=== PATIENT | female | born 1990 | race Caucasian/White ===

== ENCOUNTER 2025-09-20 08:42 | Outpatient (AMB) | payer MEDICAID, SELFPAY ==
[2025-09-20 09:12] VITALS: BP 119/77; RESP 18; TEMP 36.8; O2SAT 98
--- NOTE | 2025-09-20 09:12 | AMB.OBINITIA ---
Vital Signs 09/20/25 09:12 Weight 91.626 kg Weight Measurement Method Standing Scale BP 119/77 Blood Pressure Source Automatic Cuff Blood Pressure Location Left Upper Arm Position Sitting Respiration 18 Pulse Source Monitor Temp 98.2 F Temp Source Oral Pulse Oximetry (%) 98 Oxygen Delivery Method Room Air Allergies/Home Meds Allergies & Medications Allergies Penicillins Allergy (Unknown, Verified 09/20/25 10:13) Intake Visit Data Collection New Patient or Established: Established Patient (seen at [facility] within 3 years) Reason for Visit:: OB TRANSFER Seen by Clinical Staff ONLY (RN/MA): No Environmental Protection Officer Required: Yes Environmental Protection Officer's name/title: CARLEEN FIELD MA Do You Feel Safe at Home: Yes Authorities Contacted: N/A PCP or OBGYN visit in last 3 months: Yes Hx Now: Yes Are you currently on any form of Control: No Pain Present Currently: No Pain Scale Used: Davies-Gray/Numerical Pain scale:: 0 Smoking Status Smoking Status: Never smoker Immunizations Flu Vaccine in the Last 12 Months: No Flu Vaccine Exclusion Criteria: No Exclusion Criteria Questionnaires Covid-19 Vaccine Questionnaire Has patient been vacinated for Covid-19 Have you been vacinated for Covid-19: Yes PHQ-9 PHQ-2 Over the last 2 weeks, how often have you been bothered by any of the following problems? 1. Little interest or pleasure in doing things: not at all 2. Feeling down, depressed, or hopeless: not at all Total score: 0 PHQ-9 3. Trouble falling or staying asleep, or sleeping too much: Not at all 4. Feeling tired or having little energy: Not at all 5. Poor appetite or overeating: Not at all 6. Feeling bad about yourself - or that you are a failure or have let yourself or your family down: Not at all 7. Trouble concentrating on things, such as reading the newspaper or watching television: Not at all 8. Moving or speaking so slowly that other people could have noticed? - Or the opposite - being so fidgety or restless that you have been moving around a lot more than usual: not at all 9. Thoughts that you would be better off or of hurting yourself in some way: Not at all Total score: 0 If you checked off any problems, how difficult have these problems made it for you to do your work, take care of things at home, or get along with other people?: not difficult at all Source: Developed by Drs. Oj Nails, Tata Bailon, Mitchell Salas and colleagues, with an educational dontae from [employer]. Depression screen completed yes Social History Living Situation History Marital Status: Single Lives With: Family Housing: House Tobacco History Smoking Status: Never smoker Second Hand Smoke Exposure: No Alcohol History Alcohol Intake: Never Domestic Abuse History Do You Feel Safe at Home: Yes History of Present Illness HPI Narrative Establish care for Non-stress test and biophysical profile Yessy Gardiner is a patient at 35 weeks and one day gestation who presents for routine non-stress test and biophysical profile monitoring. She was transferred from Dr. 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 The patient is scheduled for a repeat section on Oct 30 2025, in [place], which would be her fourth delivery. She has a history of grand multiparity and advanced maternal age. Her current medications include acetaminophen, folic acid, and vitamins. She has a medical history significant for [id number] urinary tract infections, backache, and headache. The patient is currently being monitored twice weekly until delivery due to the cardiac abnormalities that have been consistently identified on multiple echocardiograms. Medical History: - History of aroi-qbmtge-[id number] urinary tract infections - Backache - Headache - Advanced maternal age Surgical History: - Three prior sections Obstetric History: - Grand multiparity with advanced maternal age - History of three prior sections - Current : - Gestational age: 35 weeks 1 day - Last menstrual period: January 17, 2025 - Estimated due date: October 24, 2025 - Scheduled repeat section: October 16, 2025 Medications: - Acetaminophen - Folic acid - Prenatals Laboratory, Imaging, and Diagnostic Test Results - Date: 04/04/2025 - Blood type: O positive - Antibody screen: Negative - RPR: Non-reactive - HIV: Non-reactive - Hepatitis B: Negative - Rubella: Immune - Urinalysis: Protein 1+ - Hemoglobin A1c: 5.6 - Date: 06/01/2025 - AFP: Negative - Date: 06/14/2025 - Cystic fibrosis screening: Negative - Date: 06/21/2025 - Ultrasound: Fetus at 21 weeks 3 days gestational age - Date: 07/28/2025 - Gonorrhea: Negative - Chlamydia: Negative - One-hour glucose tolerance test: 134 - Hemoglobin: 11.3 g/dL - Hematocrit: 35.2% - Third trimester RPR: Non-reactive - Date: 08/11/2025 - echocardiogram: Hypoplastic right heart syndrome, tricuspid valve hypoplasia, pulmonary atresia - Date: 09/08/2025 - echocardiogram: Consistent findings of hypoplastic right heart syndrome, tricuspid valve hypoplasia, pulmonary atresia - Date: 09/10/2025 - Maternal- medicine ultrasound: Estimated weight 1907 grams (57th percentile), confirmed hypoplastic right heart syndrome COLLECTIONS ASSOCIATE: Past Medical History Past Medical History: No Hx Neurological Disorders, No Hx Breast Cancer, No Hx Cardiac Disorders, No Hx Blood Disorders, No Hx Gastrointestinal Disorders, No Hx Renal Disease, No Hx Diabetes Mellitus Type 1 and No Hx Diabetes Mellitus Type 2 OB Initial Visit Menstrual History Menstrual reliability: definite Flow: normal Menstrual regularity: regular Monthly: Yes Age at menarche: 11 On control pills at conception: No OB History : 5 Para: 3 Hx Total # of Abortions (Spontaneous & Elective): 1 # of Living Children: 3 Delivery History 1st : Child's name: NA date: 07/23/07 sex: female Delivery type: History of depression before or after : No 2nd : Child's name: NA date: 06/09/11 sex: male Delivery type: History of depression before or after : No 3rd : Child's name: NA date: 06/25/18 sex: female Delivery type: Infection History & Risk Evaluation History of STDs: none HIV risk evaluation: low risk Hepatitis B risk evaluation: low risk Patient or partner has history of Genital Herpes: No Varicella/chicken pox status: immunized Genetic Screening & History Genetic Screening/Teratology Counseling - Includes patient, baby's father, or anyone in either family with: 1. Patient's age 35 years or older as of estimated date of delivery: No 2. Thalassemia (Niuean, Italian, Mediterranean, or Background); MCV less than 80: No 3. Neural Tube Defect (Meningomyelocele, Spina Bifida, or Anencephaly): No 4. Congenital Heart Defect: No 5. Down Syndrome: No 6. Ranjan-Sachs (Ashkenazi Mormon, Cajun, Central African [place]): No 7. Roxanne Disease (Ashkenazi Mormon): No 8. Familial Dysautonomia (Ashkenazi Mormon): No 9. Sickle Cell Disease or Trait (): No 10. Hemophilia or other blood disorders: No 11. Muscular Dystrophy: No 12. Cystic Fibrosis: No 13. Mehrdad's Chorea: No 14. Mental Retardation/Autism: No 15. Other inherited genetic or chromosomal disorder: No 16. Maternal Metabolic Disorder (EG,TYPE 1 Diabetes, PKU): No 17. Patient or baby's father had a child with defects not listed above: No 18. Recurrent loss or a stillbirth: No 19. Medications (including supplements, vitamins, herbs or otc drugs)/illicit/recreational drugs/alcohol since last menstrual period: No 20. Any other: No Infection History 1. Live with someone with TB or exposed to TB: No 2. Rash or viral illness since last menstrual period: No 3. Hepatitis B,C: No Other (see comments) Source: [employer] Exam General General Appearance: alert, in no apparent distress and healthy appearing Head Head exam: atraumatic Neck Neck exam: Present normal inspection and trachea midline Chest Chest inspection: Present normal inspection and symmetric chest wall rise External exam: Present normal external exam; Absent tenderness Neuro Neurological exam: Present oriented X3 Psych Psychiatric exam: Present normal affect and normal mood Office Procedures OBC Clinic LOC & Office Proc's Nursing/Assessment Patient Status: Established Patient OB Clinic Nursing Assessment: Medication Reconciliation, Update PMH in EMR and Vital Signs OB Clinic Coordination of Care: Consent,records obtained, informed consent, Education Simp Pt/Fam, Lab and Imaging orders, Results/Orders obtained and Staff clarify orders Special Needs: Heart tones Established Patient Charge Established Patient Point Assignment: 110 Established Patient Point Charge: EP Level 3 (80-115) Assessment & Plan Diagnosis / Problem List (1) Supervision of high risk , unspecified, third trimester: Status: Acute (2) Maternal care for low transverse scar from previous delivery: Status: Acute (3) cardiac anomaly affecting , antepartum: Status: Acute Plan hypoplastic right heart syndrome Assessment: echocardiograms on August 11, 2025, and September 08, 2025, showed consistent findings of hypoplastic right heart syndrome, tricuspid valve hypoplasia, and pulmonary atresia. Maternal- medicine ultrasound on September 10, 2025, estimated weight at 1907 grams (57th percentile) and confirmed hypoplastic right heart syndrome. Plan: - Continue twice weekly monitoring until delivery - Non-stress test and biophysical profile monitoring - Proceed with scheduled repeat section on October 16, 2025, in [place] , intrauterine, 35 weeks 1 day Plan: - Scheduled repeat section on Oct 30, 2025, in [place] - Continue twice weekly monitoring until delivery
== END 2025-09-20 09:37 | disposition home or self-care (01) ==
LOC: HODSOBC 08:42
PROVIDERS: PCP Family Medicine; Referring Provider Family Medicine; Supervising Provider Obstetrics & Gynecology; Visit Provider Obstetrics & Gynecology
DX: O09.293 Supervision of pregnancy with other poor reproductive or obstetric history, third trimester (principal); O34.211 Maternal care for low transverse scar from previous cesarean delivery; O09.523 Supervision of elderly multigravida, third trimester; O35.BXX0 Maternal care for other (suspected) fetal abnormality and damage, fetal cardiac anomalies, not applicable or unspecified; O09.893 Supervision of other high risk pregnancies, third trimester; Z3A.35 35 weeks gestation of pregnancy; Z88.0 Allergy status to penicillin
CPT/HCPCS: 99213; G0463

== ENCOUNTER 2025-09-20 09:55 | Outpatient (CLI) | payer MEDICAID, SELFPAY ==
[2025-09-20] VITALS (7 sets, daily range): BP systolic 128; BP diastolic 79; PULSE 78–85; RESP 17–98; TEMP 36.7; O2SAT 96–98; BMI 33.7
--- NOTE | 2025-09-20 10:41 | EVENTNT_ITS ---
Documentation for date of: 09/20/25 Event Note Event Note: Patient is a 34-year-old -0-0-3 history of x 3and an EDC 11/06/2025. 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 She was a transfer recently to our clinic from Dr. Rodriguez. The patient has been seeing a maternal- medicine specialist in [place] and the plan is to have a scheduled repeat 10/30/2025. The patient is also planning on moving up to [place] and staying in the [facility] starting 10/16/2025. Today she presents for a scheduled NST. She states she saw the maternal- medicine specialist in [place] 09/14/2025 and they did an ultrasound of the baby. It sounds like they gave her one shot of steroids but not a second one. She is unsure whether she needs more steroids for lung maturity. The plan will be to schedule the patient for biweekly NSTs /BPP's. She will continue to follow-up in our clinic. She will call her MFM specialist to see if she needs a course of steroids for lung maturity. She is aware that the baby will likely need immediate cardiac surgery after . I did ask the patient through a traffic signal supervisor maintenance whether she would like to sign tubal ligation papers as she is having a scheduled repeat however patient declines. She states that she manages her own control and every thus far has been planned. Today, she reports good movement, no contractions, no bleeding and no loss of fluids. She is Romanian-speaking only and the entire interview is performed with Nicole LOERA at bedside. Plan will to bring the patient back in for biweekly NSTs BPP's. We will try to schedule her on Thursday and . Patient will follow-up Thursday for another NST and for a BPP. Today's NST is reactive.
== END 2025-09-20 10:32 | disposition home or self-care (01) ==
LOC: S4S1 09:57 → S4SX 09:57
PROVIDERS: Referring Provider Obstetrics & Gynecology; Visit Provider Obstetrics & Gynecology
DX: Z34.83 Encounter for supervision of other normal pregnancy, third trimester (principal); Z36.9 Encounter for antenatal screening, unspecified; Z3A.33 33 weeks gestation of pregnancy
CPT/HCPCS: 59025

== ENCOUNTER 2025-09-25 16:17 | Outpatient (CLI) | payer MEDICAID, SELFPAY ==
[2025-09-25 16:20] VITALS: BP 116/60; PULSE 80; RESP 18; RESP 99; TEMP 36.7; BMI 33.9
[2025-09-25 16:25] VITALS: BP 116/60; PULSE 80
== END 2025-09-25 17:00 | disposition home or self-care (01) ==
LOC: S4S1 16:18 → S4SX 16:19
PROVIDERS: Referring Provider Obstetrics & Gynecology; Visit Provider Obstetrics & Gynecology
DX: Z34.83 Encounter for supervision of other normal pregnancy, third trimester (principal); Z36.9 Encounter for antenatal screening, unspecified; Z3A.34 34 weeks gestation of pregnancy
CPT/HCPCS: 59025

== ENCOUNTER 2025-10-12 10:58 | Outpatient (RCR) | payer MEDICAID, SELFPAY ==
--- NOTE | 2025-09-28 11:16 | XR_ITS ---
Examination: Biophysical profile, ultrasound Date and time of exam: September 28, 2025, 1145 hours INDICATIONS: Diagnosis high risk , diagnosis advanced maternal age Technique: Multiple transabdominal sonographic images of the pelvis abdomen obtained. Attention is directed to the breathing movement, gross body movement, amniotic fluid volume and tone. Findings: Amniotic fluid index 7.8 cm Total biophysical profile is 8 of 8. breathing movement is 2. Gross body movement is 2. tone is 2. Qualitative amniotic fluid volume is 2 Impression: Biophysical profile is 8 of 8.
[2025-09-28 11:55] VITALS: BP 124/67; PULSE 76; RESP 16; TEMP 36.7
--- NOTE | 2025-10-02 11:02 | XR_ITS ---
Examination: Biophysical profile, ultrasound Date and time of exam: October 02, 2025, 1109 hours INDICATIONS: Diagnosis high risk , diagnosis advanced maternal age Technique: Multiple transabdominal sonographic images of the pelvis abdomen obtained. Attention is directed to the breathing movement, gross body movement, amniotic fluid volume and tone. Findings: Amniotic fluid index 7.6 cm Total biophysical profile is 8 of 8. breathing movement is 2. Gross body movement is 2. tone is 2. Qualitative amniotic fluid volume is 2 Impression: Biophysical profile is 8 of 8.
[2025-10-02 11:20] VITALS: BP 117/66; PULSE 89; RESP 16; TEMP 36.7
--- NOTE | 2025-10-05 10:48 | XR_ITS ---
Examination: Biophysical profile, ultrasound Date and time of exam: October 05, 2025, 1051 hours INDICATIONS: Diagnosis high risk , diagnosis advanced maternal age Technique: Multiple transabdominal sonographic images of the pelvis abdomen obtained. Attention is directed to the breathing movement, gross body movement, amniotic fluid volume and tone. Findings: Amniotic fluid index 11.9 cm Total biophysical profile is 8 of 8. breathing movement is 2. Gross body movement is 2. tone is 2. Qualitative amniotic fluid volume is 2 Impression: Biophysical profile is 8 of 8.
[2025-10-05 11:00] VITALS: BP 122/70; PULSE 96; RESP 16; TEMP 36.9
--- NOTE | 2025-10-09 10:59 | XR_ITS ---
Examination: Biophysical profile, ultrasound Date and time of exam: October 09, 2025, 1112 hours INDICATIONS: Diagnosis high risk , diagnosis advanced maternal age Technique: Multiple transabdominal sonographic images of the pelvis abdomen obtained. Attention is directed to the breathing movement, gross body movement, amniotic fluid volume and tone. Findings: Amniotic fluid index 9.4 cm Total biophysical profile is 8 of 8. breathing movement is 2. Gross body movement is 2. tone is 2. Qualitative amniotic fluid volume is 2 Impression: Biophysical profile is 8 of 8.
[2025-10-09 11:28] VITALS: BP 111/64; PULSE 80; RESP 16; TEMP 36.7
--- NOTE | 2025-10-12 11:08 | XR_ITS ---
Examination: Biophysical profile, ultrasound Date and time of exam: October 12, 2025, 1114 hours INDICATIONS: Diagnosis high risk , diagnosis advanced maternal age Technique: Multiple transabdominal sonographic images of the pelvis abdomen obtained. Attention is directed to the breathing movement, gross body movement, amniotic fluid volume and tone. Findings: Amniotic fluid index 9.6 cm Total biophysical profile is 8 of 8. breathing movement is 2. Gross body movement is 2. tone is 2. Qualitative amniotic fluid volume is 2 Impression: Biophysical profile is 8 of 8.
[2025-10-12 12:20] VITALS: BP 118/63; PULSE 80; RESP 16
== END 2025-10-12 23:59 | disposition home or self-care (01) ==
LOC: S4S1 10:58
PROVIDERS: Referring Provider Obstetrics & Gynecology; Visit Provider Obstetrics & Gynecology
DX: O35.8XX0 Maternal care for other (suspected) fetal abnormality and damage, not applicable or unspecified (principal); O09.523 Supervision of elderly multigravida, third trimester; Z3A.36 36 weeks gestation of pregnancy
CPT/HCPCS: 59025; 76819